=== PATIENT | male | born 1985 | race Two or more races ===

== ENCOUNTER 2018-09-07 18:17 | Emergency (ER) | payer SELFPAY ==
[~2018-09-07] VITALS: Ht 172.7 cm; Wt 85.3 kg
[2018-09-07] MEDS ORDERED: NKM (18:25)
--- NOTE | 2018-09-07 18:43 | Emergency Room Report ---
History of Present Illness General Chief Complaint: Chest Pain Source: Patient Present Illness HPI Patient reports that approximately 1:00 in the afternoon he was drinking a strong caffeinated drink He soon started having palpitation sensation and pain to the left upper chest He reports that he has had anxiety in the past however did not associated pain with it Denies any vomiting or diarrhea Denies any smoking or drinking alcohol Patient denies any other previous medical history Allergies: Coded Allergies: No Known Allergies (Unverified , 09/07/18) Patient History Past Medical History: see triage record Pertinent Family History: none Reviewed Nursing Documentation: PMH: Agreed; PSxH: Agreed Nursing Documentation-PM Past Medical History: No History, Except For Hx Cardiac Problems: Yes - AFIB Review of Systems All Other Systems: negative except mentioned in HPI Physical Exam Vital Signs Date Time Temp Pulse Resp B/P (MAP) Pulse Ox O2 Delivery O2 Flow Rate FiO2 09/07/18 18:22 99.0 85 16 154/98 96 Room Air Sp02 EP Interpretation: reviewed, normal General Appearance: well appearing, no apparent distress Head: normocephalic, atraumatic Eyes: bilateral eye PERRL, bilateral eye EOMI ENT: hearing grossly normal, normal pharynx, TMs + canals normal, uvula midline Neck: full range of motion, supple, no meningismus, no bony tend Respiratory: lungs clear, normal breath sounds, no rhonchi, no respiratory distress, no retraction, no accessory muscle use Cardiovascular #1: normal peripheral pulses, regular rate, rhythm, no edema, no gallop, no JVD, no murmur Gastrointestinal: normal bowel sounds, non tender, soft, no mass, no organomegaly, non-distended, no guarding, no hernia, no pulsatile mass, no rebound Genitourinary: no CVA tenderness Musculoskeletal: normal inspection Neurologic: oriented x3, responsive, long term care administrator III-XII nml as tested, motor strength/ tone normal, sensory intact Psychiatric: mood/affect normal Skin: normal color, no rash, warm/dry, palpation normal Lymphatic: normal inspection, no adenopathy Medical Decision Making Diagnostic Impression: Primary Impression: Chest pain ER Course Patient is a fairly complex patient with multiple differential to consideration including but not limited to cardiac cardiopulmonary and vascular emergencies Patient's EKG and chest x-ray are normal patient remains essentially asymptomatic and appropriate My consideration for cardiac pathology is low and patient stable for close outpatient follow-up EKG Diagnostic Results Rate: normal Rhythm: NSR ST Segments: no acute changes Rhythm Strip Diag. Results EP Interpretation: yes Rate: 70 Rhythm: NSR, no PVC's, no ectopy Chest X-Ray Diagnostic Results Chest X-Ray Diagnostic Results : Chest X-Ray Ordered: Yes # of Views/Limited/Complete: 1 View Indication: Chest Pain EP Interpretation: Yes Interpretation: no consolidation, no effusion, no pneumothorax Impression: No acute disease Electronically Signed by: Perfecto Walker DO Last Vital Signs Date Time Temp Pulse Resp B/P (MAP) Pulse Ox O2 Delivery O2 Flow Rate FiO2 09/07/18 18:22 99.0 85 16 154/98 96 Room Air Status: improved Disposition: HOME, SELF-CARE Condition: Improved Additional Instructions: Patient is provided with the discharge instructions notified to follow up with primary doctor in the next 2-3 days otherwise return to the er with any worsening symptoms. Please note that this report is being documented using [employer] technology. This can lead to erroneous entry secondary to incorrect interpretation by the dictating instrument. Perfecto Walker DO Sep 07, 2018 18:43
--- NOTE | 2018-09-07 18:48 | NUR ---
ED Nurse Note: Pt came into the Er w/ complaints of chest pain x 2 hours. Pt is rating the pain a 7/10. Non radiating. Pt states that it started once he drank coffee. A + O x4. Ambulatory. Skin warm to touch.
[2018-09-07 18:49] VITALS: BP 150/97
[2018-09-07 19:03] VITALS: BP 145/98
--- NOTE | 2018-09-07 19:03 | NUR ---
ER DISCHARGE NOTE: Patient is cleared to be discharged per ERMD, pt is aox4, on room air, with stable vital signs. pt was given dc and prescription instructions, pt was able to verbalize understanding, pt id band removed without complications. pt is able to ambulate with steady gait. pt took all belongings.
--- NOTE | 2018-09-09 19:14 | Cardiology Report ---
APPROVED REPORT EKG Measurement Heart [id number] Normal sinus rhythm with sinus arrhythmia Normal ECG
== END 2018-09-07 19:04 | disposition home or self-care (01) ==
LOC: EDBD 18:17 → EMR 18:50
DX: R07.9 Chest pain, unspecified (principal)
CPT/HCPCS: 71045; 93005; 99283